=== PATIENT | female | born 1985 | race Caucasian/White ===

== ENCOUNTER 2025-07-25 10:55 | Outpatient (AMB) | payer OTHER, SELFPAY ==
--- OUTSIDE RECORDS SUMMARY | 2025-07-23 14:00 | XMS_ITS | Encounter Summary ---
Author Organization [facility] Address [address] [place] [address] Care Team Providers Care Acquisition Manager Name Role Phone Aditi Delarosa MD Primary Care Provider [phone] Reason for Referral * Imaging (Routine) - Authorized Specialty Diagnoses / Procedures Referred By Eli yañez Referred To Contact Radiology Diagnoses Encounter for screening for cardiovascular disorders Procedures MG Mammo Digital Screening bilat Bárbara Nelson, GERDA [address] [place] [address] Phone: tel: fax: [address] Phone: tel: Referral ID Status Reason Start Date Expiration Date V isits Requested Visits Authorized [id number] Authorized 07/23/2025 07/23/2026 1 1 Reason for Visit * Reason Comments Follow-up 2 week follow up for numbness and tingling in right arm. Right arm is not any better. When patient tries to use arm pain shoots from wrist up to right arm and is now going I to shoulder blade. Encounter Details Date Type Department Care Team (Late st Contact Info) Description 07/23/2025 2:00 PM EST Office Visit Adult Medicine [address] [phone] Bárbara Nelson, GERDA [address] [place] [address] Cervical radiculopathy (Primary Dx); Numbness and tingling of right arm; Type 2 diabetes mellitus without complication, without long-term current use of insulin ([facility] V24, [facility] V28); Encounter for screening for cardiovascular disorders Social History Tobacco Use Types Packs/Day Years Used Date Smoking Tobacco: Never Smokeless Tobacco: Never Tobacco Cessation:Counseling Given: Not Answered Alcohol Use Standard Drinks/Week Comments No 0 (1 standard drink = 0.6 oz pur e alcohol) Housing Instability Answer Date Recorde d Are you worried that in the next 2 months you may not have stable housing? No 06/16/2025 Food Access & Nutrition Answer Date Rec orded Do you have access to a vari ety of food including fruits and vegetables? Yes 06/16/2025 Access to Healthcare Answer Date Record ed Within the last 3 months, ho w many times did you visit the emergency department for your medical care? 0 06/16/2025 Health Literacy Answer Date Recorded How often do you need to hav e someone help you when you read instructions, pamphlets, or other written material from your doctor or pharmacy? Never 06/16/2025 Caregiver: How often do you need to have someone help you when you read instructions, pamphlets, or other written material from your doctor or pharmacy? Not on file 06/16/2025 Financial Risk Answer Date Recorded How hard is it for you to pa y for the very basics like food, housing, medical care, and air conditioning / heating? Not very hard 06/16/2025 Transportation Answer Date Recorded Has the lack of transportati on kept you from meetings, work, or from getting things needed for daily living? No Has the lack of transportati on kept you from medical appointments or from getting medications? No 06/16/2025 Social Isolation Answer Date Recorded How often do you feel lonely or isolated from th ose around you? Never 06/16/2025 Food Risk Answer Date Recorded Within the past 12 months we worried whether our food would run out before we got money to buy more. Never true 06/16/2025 Within the past 12 months th e food we bought just didn't last and we didn't have money to get more. Never true 06/16/2025 Dependent Care Answer Date Recorded Do you need help finding or paying for care for your loved ones. For example, child protective services social worker or elderly care for an older adult? No 06/16/2025 Education Answer Date Recorded Do you think completing more education or training, like finishing a GED, going to college, or learning a trade, would be helpful for you? No 06/16/2025 Employment and Income Answer Date Recor ded During the last four weeks, have you been actively looking for work? No 06/16/2025 Living Situation Answer Date Recorded What is your living situation? Unrecognized valu e 06/16/2025 Comments Unknown Sex and Gender Information Value Date Recorded Sex Assigned at Not on file Legal Sex Female 4:17 AM EST Gender Identity Not on file Sexual Orientation Not on file documented as of this encounter Last Filed Vital Signs Vital Sign Reading Time Taken Comments Blood Pressure 102/70 07/23/2025 2:09 PM EST Pulse 66 07/23/2025 2:09 PM EST Temperature 36.2 C (97.2 F) 07/23/2025 2:09 PM EST Respiratory Rate - - Oxygen Saturation 97% 07/23/2025 2:09 PM EST Inhaled Oxygen Concentration - - Weight 104 kg (230 lb) 07/23/2025 2:09 PM EST Height 157.5 cm (5' 2 ) 07/23/2025 2:09 PM EST Body Mass Index 42.07 07/23/2025 2:09 PM EST documented in this encounter Progress Notes * Bladimir Marks MA - 07/23/2025 2:00 PM EST BS 161 taken in office * Bárbara Nelson NP - 07/23/2025 2:00 PM EST PATIENT'S PCP: Aditi Delarosa MD LAST VISIT IN THIS DEPARTMENT: 07/10/2025 Ember Huggins is a 39 y.o. (: 1985) female who presents today for: Chief Complaint Patient presents with Follow-up 2 week follow up for numbness and tingling in right arm. Right arm is not any better. When patient tries to use arm pain shoots from wrist up to right arm and is now going I to shoulder blade. SUBJECTIVE History of Present Illness The patient is a 39-year-old female who presents for a follow-up of right arm pain. She reports persistent neck pain that radiates down her right arm, accompanied by numbness and tingling. These symptoms began on 06/09/2025. She has been referred to neurosurgery with an appointment scheduled for 08/01/2025. She also has a referral to physiatry for physical therapy on 07/25/2025. An x-ray was performed, but an MRI was not covered by her insurance. [facility] and is undergoing strengthening exercises. Although she has improved mobility in her right arm, she is unable to raise it fully. She continues to experience numbness in her fingers and reduced solid waste collection worker strength. Her neck pain has subsided, but she still experiences pain radiating down her arm, extending to her shoulder blade. She is currently on prednisone and a muscle relaxer, which she takes as needed. She has been prescribed quetiapine for nighttime use. Ibuprofen provides some relief from the pain but does not alleviate the numbness or tingling. She expresses a desire to return to work and has been attempting to use both arms as much as possible. She experiences numbness after approximately 1.5 to 2 hours of activity. She has developed a callus on her left hand due to increased use. She works 8 hours a day, Monday through Monday, and is open to returning to work part-time. Patient is a diabetic. Blood sugar in the office today was 161. Last A1c was 8.8% a year ago. She is currently on metformin 500 mg, 2 tabs in the morning 2 tabs in the evening. Will order routine labs for patient to complete prior to her next appointment in August. Review Of System Review of Systems Constitutional: Negative. Cardiovascular: Negative. Musculoskeletal: Positive for neck pain. Neck pain Arm Numbness Skin: Negative. Neurological: Positive for weakness and numbness. The following portions of the patient's chart were reviewed in this encounter and updated as appropriate: OBJECTIVE Vitals: 07/23/25 1409 BP: 102/70 Pulse: 66 Temp: 36.2 ??C (97.2 ??F) TempSrc: Temporal SpO2: 97% Weight: 104 kg (230 lb) Height: 1.575 m (62 ) BP Readings from Last 5 Encounters: 07/23/25 102/70 07/09/25 120/81 06/25/25 120/88 06/16/25 113/72 06/05/24 118/74 Body mass index is 42.07 kg/m??. Plan is deferred until next visit Wt Readings from Last 5 Encounters: 07/23/25 104 kg (230 lb) 07/09/25 102 kg (225 lb) 06/25/25 103 kg (227 lb) 06/16/25 103 kg (228 lb) 02/06/24 103 kg (228 lb) Allergies[1] Active Medication: Current Outpatient Medications Medication Instructions blood-glucose meter kit Prescribed by Rakesh Fernandez cyclobenzaprine (FLEXERIL) 5 mg, oral, 2 times daily PRN escitalopram (LEXAPRO) 20 mg, Daily glucose blood test strip Prescribed by Rakesh Fernandez ibuprofen (ADVIL,MOTRIN) 600 mg, oral, 3 times daily PRN lancets lancets Prescribed by Rakesh Fernandez levonorgestreL (MIRENA) 21 mcg/24hr (up to 8 yrs) 52 mg IUD Prescribed by THAI metFORMIN XR (GLUCOPHAGE-XR) 500 mg 24 hr tablet 2 tablets, 2 times daily QUEtiapine (SEROQUEL) 25 mg, oral, Nightly, Prescribed by Dr. Bravo in Psychiatry Physical Exam Vitals reviewed. Constitutional: Appearance: Normal appearance. Cardiovascular: Rate and Rhythm: Normal rate and regular rhythm. Pulses: Normal pulses. Heart sounds: Normal heart sounds. Pulmonary: Effort: Pulmonary effort is normal. Breath sounds: Normal breath sounds. Abdominal: General: Bowel sounds are normal. Palpations: Abdomen is soft. Musculoskeletal: Right shoulder: Tenderness present. Decreased range of motion. Decreased strength. Right upper arm: Tenderness present. Right elbow: Decreased range of motion. Tenderness present. Right forearm: Tenderness present. Right hand: Tenderness present. Decreased range of motion. Decreased strength. Cervical back: Normal range of motion and neck supple. Lumbar back: Tenderness present. Decreased range of motion. Skin: General: Skin is warm and dry. Neurological: General: No focal deficit present. Mental Status: She is alert. Mental status is at baseline. Imaging No Pertinent Imaging Laboratory: CBC: No results found for: WBC , HGB , HCT , MCV , PLT No results found for: LDLCALC 1. Cervical radiculopathy 2. Numbness and tingling of right arm 3. Type 2 diabetes mellitus without complication, without long-term current use of insulin ([facility], [facility] V28) 4. Encounter for screening for cardiovascular disorders Assessment & Plan 1. Cervical radiculopathy with numbness and tingling of the right arm: - Patient reports neck pain radiating down the right arm, accompanied by numbness and tingling, starting on 06/09/2025 - Pain no longer reaches the neck but still affects the shoulder area - Pain improved with prednisone, indicating an inflammatory process - Continues to use muscle relaxer and ibuprofen, which helps with pain but not with numbness and tingling - Referred to neurosurgery with an appointment scheduled for 08/01/2025 - Scheduled for physical therapy on 07/25/2025 - Out of work until 08/06/2025, after which reassessment will be made regarding return to work part-time - Letter give 2. FMLA Form - Form: FMLA form was completed. However patient need to drop off a new form to extend FMLA. - Start of illness: 06/09/25 - Office Visit: 06/16/25, 06/25/25, 07/09/25, 07/23/25 - Next office visit: 07/23/25 - Continue or Intermitted Leave: Continuous ~ 06/17/25 to 06/08/25, Extend to 07/23/25, Second Extension to 08/06/25. - Imagining: Xray cervical, MRI Cervical Spine ordered but the denied - Specialist Referral: Physical Therapy, pain management 07/25/25 and Neurosurgery appt 08/01/25 - Treatment: ibuprofen, prednisone, muscle relaxer, cortisone injection and Physical Therapy - Out of work reason: Persistent neck pain with numbness in the right arm. 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 She have numbness and pain when she type. 3. Diabetes -Blood sugar in the office today was 161. Last A1c was 8.8% a year ago. - Metformin 500 mg, 2 tabs in the a.m. and 2 tabs in the evening with meals. - Patient is to maintain a low carb diet. Patient understands the plan and is in agreement with the plan. FOLLOW-UP: Follow up in about 2 weeks (around 08/06/2025) for Follow up with Bárbara Nelson NP-. Bárbara Nelson NP ADULT [address] I have obtained verbal consent from Ember Tavia Huggins prior to the recording. I have advised Ember Tavia Huggins that she may refuse the recording and require the recording to be turned off at any time during this encounter. Today's documentation was made using voice recognition software.This note may contain grammatical errors secondary to this software. [1] Allergies Allergen Reactions House Dust Nickel Other Itching Rubber Fragrances. No reaction documented. documented in this encounter Plan of Treatment Upcoming Encounters Date Type Department Care Team (Late st Contact Info) Description 07/30/2025 9:30 AM EST Appointment Radiology Department - [address] [phone] 08/01/2025 11:30 AM EST Consult Neurosurgery [facility] [address] [phone] Mino Kwon PA [address] [address] 08/06/2025 2:00 PM EST Office Visit [address] [phone] Bárbara Nelson NP [address] [place] [address] Scheduled Orders Name Type Priority Associated Diagnoses Orde r Schedule Hemoglobin A1c Lab Routine Type 2 diabetes mellitus without complication, without long-term current use of insulin (CMS/HCC V24, CMS/HCC V28) Expected: 07/23/2025, Expires: 01/20/2026 Comprehensive metabolic panel Lab Routine Type 2 diabetes mellitus without complication, without long-term current use of insulin (CMS/HCC V24, [facility] V28) Encounter for screening for cardiovascular disorders Expected: 07/23/2025, Expires: 01/20/2026 Lipid panel with reflex to direct LDL Lab Routine Type 2 diabetes mellitus without complication, without long-term current use of insulin ([facility] V24, [facility] V28) Encounter for screening for cardiovascular disorders 1 Occurrences starting 07/23/2025 until 07/23/2026 Thyroid stimulating hormone with reflex to free t4 and free t3 Lab Routine Type 2 diabetes mellitus without complication, without long-term current use of insulin ([facility] V24, [facility] V28) Encounter for screening for cardiovascular disorders 1 Occurrences starting 07/23/2025 until 01/20/2026 Microalbumin creatinine urine ratio Lab Routine Type 2 diabetes mellitus without complication, without long-term current use of insulin ([facility] V24, [facility] V28) 1 Occurrences starting 07/23/2025 until 07/23/2026 [facility] Mammo Digital Screening bilat Imaging Routine Encounter for screening for cardiovascular disorders Expected: 07/23/2025, Expires: 07/23/2026 documented as of this encounter Procedures Procedure Name Priority Date/Time Associated Diagnosis Comments POC GLUCOSE Routine 07/23/2025 2:20 PM EST Type 2 diabetes mellitus without complication, without long-term current use of insulin ([facility] V24, [facility] V28) documented in this encounter Results * (ABNORMAL) POC glucose manually resulted (07/23/2025 2:20 PM EST) Glucose POC 161(A) 75 - 100 mg/dL Blood Capillary blood specimen / Unknown 07/23/2025 2:20 PM EST us Bárbara Nelson LOCATOR SPECIALIST POINT OF CARE TEST ENTER/CRUZ T ORDERABLES Final Result documented in this encounter Visit Diagnoses Diagnosis Cervical radiculopathy- Primary Brachial neuritis or radiculitis nos Numbness and tingling of right arm Type 2 diabetes mellitus without complication, without long-term current use of insulin ([facility] V24, [facility] V28) Encounter for screening for cardiovascular disorders documented in this encounter Discontinued Medications Medication Sig Discontinue Reason Start Date End Da te hydrOXYzine HCL (ATARAX) 10 mg tabletIndications:Cervical radiculopathy Take by mouth. Therapy completed 07/23/2025 predniSONE (DELTASONE) 20 mg tablet Take 60 mg PO daily for 3 days, then take 40 mg PO daily for 3 days, then 20 mg PO daily for 3 days, then stop Therapy completed 06/25/2025 07/23/2025 documented as of this encounter Additional Health Concerns Assessment Noted Time PHQ-9 Depression Total Score: 11 025 11:18 AM EDT documented as of this encounter Care Teams Acquisition Manager Relationship Specialty Start Date End Date Aditi Delarosa MD [address] [place] [id number] PCP - General Internal Medicine 11/08/21 documented as of this encounter
--- NOTE | 2025-07-25 10:58 | A.PHYSOV_ITS ---
Vital Signs 07/25/25 11:07 Height 5 ft 2 in Weight 225 lb BMI 41.1 Intake Visit Reasons: 1M followup Intake Note: Patient is a 39 year old patient here for a 1 month follow up today. Transportation Manager Required: No Allergies nickel Allergy (Unknown, Verified 07/25/25 10:59) Unknown rubber, unspecified Allergy (Unknown, Verified 07/25/25 10:59) Unknown HPI Comments Details: History of Present Illness The patient is a 39 year old individual presenting with right-sided arm pain and numbness. The pain originates in the elbow and radiates to the shoulder and back, with numbness and tingling in the fingers. Patient reports marked improvement of her lateral elbow pain since the July 02 epicondylitis injection. She is reporting most of her pain medially at a 6/10 in a similar distribution from the elbow to the hand. She also reports paresthesias in the median nerve distribution worse with activity. She denies any symptoms at night. Patient has been completing physical therapy without relief of her symptoms. Pain Description - Onset: Symptoms began in June. - Quality: Intermittent pain with numbness and tingling. - Location: Right elbow, radiating to shoulder and back. - Exacerbating factors: Daily activities such as eating and washing. - Relieving factors: Previous elbow injection provided temporary relief. Procedure: Right lateral epicondylitis injection 07/02/2025 Right medial epicondylitis injection 07/25/2025 [facility] Surgical History History of cholecystectomy (Unknown) Previous section (Unknown) Social History Alcohol intake: current Alcohol intake frequency: holidays/special occasions only Patient Tobacco Use Status: Never used Tobacco Use of substances other than those prescribed or required for medical reasons: Yes Substance Use Type: Marijuana Review of Systems Narrative Review of Systems - Neurological: Reports intermittent tingling in right fingers, denies numbness with neck movement. - Musculoskeletal: Reports right-sided arm pain, denies exacerbation with neck movement. Physical Exam Exam Exam: Physical Exam Cervical Spine: Examination of the cervical spine, there is no visible swelling or deformity. She is mildly tender to the right upper trapezius. Full range of motion of her cervical spine. Special Tests: Axial Compression test: Negative Spurlings test: Negative Lhermitte's sign is Negative Upper Extremities: Examination of her right elbow, she is less tender to the right lateral epicondyle. She is markedly tender to the medial epicondyle. She has a negative cubital tunnel test. She does have pain with Tinel testing. Full range of motion of her elbow wrist and hand. Equal plasma cutting machine operator strength too aterally. Neuro: Sensation: Intact to upper extremities bilateral to light touch Strength C5 (Elbow Flexion): 5/5 on the left and 5/5 on the right. C6 (Elbow Ext): 5/5 on the left and 5/5 on the right. C7 (Elbow Ext): 5/5 on the left and 5/5 on the right. C8 (Finger Flex): 5/5 on the left and 5/5 on the right. T1 (Finger Abd/Add): 5/5 on the left and 5/5 on the right. DTR: C5 (Biceps): Left 2 Right 2 C6 (Brachioradialis): Left 2 Right 2 C7 (Triceps): Left 2 Right 2 Rubio sign: Negative No pathologic clonus. No involuntary movement. Vital Signs: BMI result Body Mass Index 41.1 Office Procedures AMB Ankle Injection Ankle Joint injection Procedure Details: The patient was educated about the risks, complications and benefits of medial epicondylitis injection. She is eager to proceed. She was cleansed over the right medial epicondyle with iodine. She was then anesthetized with ethyl chloride. I then injected 20 mg of Kenalog and 0.5 mL of 2% lidocaine. Patient tolerated the procedure well without immediate complication. She was cleansed with an alcohol prep and a Band-Aid was applied. Ankle Joint Injection : Right Procedure code (CPT) selection complete Office Meds Kenalog 40 mg/mL suspension for injection Performing Provider: TRISTEN Tan [facility] Administered by: TRISTEN Tan on 07/25/25 11:33 Dose Route Admin Location Dispensed Lot Number Expiration Date [facility] Marketing Copywriter 20 mg Tendon Sheath Inj. 1 mL [address]-5 [employer] Total Dispensed Waste 1 mL 50 % lidocaine (PF) 20 mg/mL (2 %) injection solution Performing Provider: TRISTEN Tan [facility] Administered by: TRISTEN Tan on 07/25/25 11:33 Dose Route Admin Location Dispensed Lot Number Expiration Date [employer] 10 mg Tendon Sheath Inj. 50 mL [id number] Total Dispensed Waste 50 mL 0 % Assessment & Plan Assessment & Plan (1) Cervicalgia: Code(s): M54.2 - Cervicalgia Category: Medical (2) Lateral epicondylitis of right elbow: Code(s): M77.11 - Lateral epicondylitis, right elbow Category: Medical (3) Medial epicondylitis of right elbow: Code(s): M77.01 - Medial epicondylitis, right elbow Category: Medical Plan Pain Management - Affect: Pain impacts daily activities but not sleep. - Analgesia: Previous injection provided temporary relief; current pain level not specified. - Adverse Effects: None reported from previous treatment. - Activities of Daily Living: Pain interferes with eating and washing. - Aberrant Drug Related Behaviors: None reported. Plan Patient was informed and verbally consented to the use of an ambient scribe for clinic note documentation during this visit. 1. Medial Epicondylitis The plan includes administering an injection near the tendon to decrease inflammation, with expected relief within 24 to 48 hours. The patient was informed of the risks, including infection, nerve damage, and bleeding, and consent was obtained. 2. Carpal Tunnel Syndrome If symptoms persist, an EMG may be considered to evaluate for carpal tunnel syndrome. She will continue her home exercise plan and medications as prescribed. Orders: Orders AMB Elbow Injection Today M77.01 - Medial epicondylitis, right elbow Coding Level of Care Code Tele Est Pt Level 3 (45435) Diagnoses Cervicalgia M54.2 Lateral epicondylitis of right elbow M77.11 Medial epicondylitis of right elbow M77.01 CPT Codes Ankle Joint injection - Ankle Joint Injection : Right ([id number])
[2025-07-25 11:07] VITALS: BMI 41.1
--- OUTSIDE RECORDS SUMMARY | 2025-07-25 11:49 | XMS_ITS | Encounter Summary ---
Author Organization [facility] Address [address] [place] [address] Care Team Providers Care Pneumatic Jack Operator Name Role Phone Aditi Delarosa MD Primary Care Provider [phone] Encounter Details Date Type Department Care Team (Late st Contact Info) Description 06/16/2025 Results Follow-Up Adult Medicine [facility] [address] [place], [place] [phone] Bárbara Nelson NP [address] [place], [place] Social History Tobacco Use Types Packs/Day Years Used Date Smoking Tobacco: Never Smokeless Tobacco: Never Alcohol Use Standard Drinks/Week Comments No 0 [...] Record ed Within the last 3 months, remington jeronimo many times did you visit the emergency [...] care for your loved ones. For example, director child development center or elderly care for an older adult? [...] on file documented as of this encounter Progress Notes * Bárbara Nelson NP - 06/24/2025 5:56 PM EDT Call patient to schedule follow-up appointment for reevaluation of cervical spine pain and to reevaluate need to be out of work. Please book in 130 office visit. documented in this encounter Plan of Treatment Upcoming Encounters Date Type Department Care Team ([facility] st Contact Info) Description 07/30/2025 9:30 AM EST Appointment Radiology Department [address] [phone] 08/01/2025 11:30 AM EST Consult Neurosurgery [facility] [address] [phone] Mino Kwon PA 175 [facility] Dmitriy [address] [place] [phone] 08/06/2025 2:00 PM EST Office Visit Adult Medicine [facility] [address] [place], [place] [phone] Bárbara Nelson NP [address] [place], [place] documented as of this encounter Visit Diagnoses Not on filedocumented in this encounter Additional Health Concerns Assessment Noted Time PHQ-9 Depression Total Score: 0 06/16/20 25 9:19 AM EDT documented as of this encounter Care Teams Pneumatic Jack Operator Relationship Specialty Start Date End Date Aditi Delarosa MD [address] [place], [place] PCP - General Internal Medicine 11/08/21 documented as of this encounter
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
--- OUTSIDE RECORDS SUMMARY | 2025-07-25 11:49 | XMS_ITS | Encounter Summary ---
Author Organization [facility] Address [address] [place] [address] Care Team Providers Care Sewer Pipe Offbearer Name Role Phone Aditi Delarosa MD Primary Care Provider [phone] Encounter Details Date Type Department Care Team (Latest Contact Info) Description 11/22/2024 Lab Requisition [facility] [address] [facility] [place] [phone] Alisha Copeland MD 299 [facility] [address] [place] [phone] Encounter for gynecological examination (general) (routine) without abnormal findings Social History Tobacco Use Types Packs/Day Years Used Date Smoking Tobacco: Never Smokeless Tobacco: Never Alcohol Use Standard Drinks/Week Comments No 0 (1 standard drink = 0.6 oz pur e alcohol) Comments Unknown Sex and Gender Information Value Date Recorded Sex Assigned at Not on file Legal Sex Female 4:17 AM EST Gender Identity Not on file Sexual Orientation Not on file documented as of this encounter Plan of Treatment Upcoming Encounters Date Type Department Care Team (Late st Contact Info) Description 07/30/2025 9:30 AM EST Appointment Radiology Department [address] [phone] 08/01/2025 11:30 AM EST Consult Neurosurgery [facility] 175 [facility] [address] [place] [phone] Mino Kwon PA [address] [address] 08/06/2025 2:00 PM EST Office Visit Adult Medicine [place] [address] [place], [place] [phone] Bárbara Nelson NP [address] [place], [place] documented as of this encounter Procedures Procedure Name Priority Date/Time Associated Diagnosis Comments PAP SMEAR Routine 11/21/2024 12:00 AM EDT Encounter for gynecological examination (general) (routine) without abnormal findings documented in this encounter Results * Pap smear (11/21/2024 12:00 AM EDT) Interpretation Negative for intraepithelial lesion or malignancy 11/26/2024 12:09 PM [facility] General Categorization Negative 11/26/2024 12:09 PM EDT [facility] Other Findings Shift in kamlesh suggestive of bacterial vaginosis 11/26/2024 12:09 PM [facility] LMP 11/07/2024 11/26/2024 12:09 PM [facility] Specimen Adequacy Satisfactory for evaluation, endocervical/lamar sformation zone component present 11/26/2024 12:09 PM [facility] Pap Methodology Liquid Based Pap Test 11/26/2024 12:09 PM [facility] Disclaimer The Pap test is a screening test which carries an inherent false negative rate. These test results should be correlated with the patient's clinical findings and history. This Pap test was processed using an automated screening system. Technical cytopathology services provided by [facility], at [address] [place] [address], [place] [address] (CLIA # [id number]/Elis Bush MD, Device Test Engineer.) 11/26/2024 12:09 PM [facility] Console Pap Interpretation Reported 11/26/2024 12:09 PM EDT [facility] Brushing/Spatula Cervix uteri structure / Unknown 11/21/2024 11/22/2024 6:21 AM EDT us Alisha Copeland MD LAB CYTOLOGY ORDERABLES Final Result [facility] [address] [place] [address], documented in this encounter Visit Diagnoses Diagnosis Encounter for gynecological examination (general) (routine) without abnormal findings documented in this encounter Care Teams Sewer Pipe Offbearer Relationship Specialty Start Date End Date Aditi Delarosa MD [address] [place] [address] PCP - General Internal Medicine 11/08/21 documented as of this encounter
--- OUTSIDE RECORDS SUMMARY | 2025-07-25 11:50 | XMS_ITS | Data Portability ---
Author Organization [facility], [address] Address [address] [place] [address] Assessment No assessment recorded. Plan of Treatment Reminders Order Date Submit Date Provider Last Modified By Organization Details Last Modified Time Details Appointments None recorded. Lab SARS CoV 2 (COVID-19) Ag, QL, IA, upper respiratory specimen 2023 024 [email or web address] [address], [address] [place], [address], 4 14:18:31 Referral None recorded. Procedures None recorded. Surgeries None recorded. Imaging None recorded. Medication Orders Allergy Relief (fluticason e) 50 mcg/actuati on nasal spray,suspe nsion 2023 024 [facility]armacy #[id number], [address] [place], [address], 4 14:18:31 fexofenadin e 60 mg-pseudoep hedrine ER 120 mg tablet,ext. release,12 hr 2023 024 [facility]armacy #[id number], [address] [place], [address], 4 14:18:33 Patient TargetsNo targets recorded. Patient Instructions Encounter Date Encounter Id Patient Instructions Last Modified By Organization Details Last Modified Time 05/28/2024 [id number] things to do i f you've been exposed to covid-19 [email or web address] Not available 05/28/2024 14:18:29 Reason for Referral None Reported. Results Created Date Observation Date Name Description Value Unit Range Abnormal Flag Note LastModifiedBy Organization Detail LastModifiedTime 05/28/20 24 05/28/2024 SARS CoV 2 (COVI D-19) Ag, QL, [place], upper respi rator y speci men Unknown Analyte negati ve Not Available [address] [place], [address], 05/28/2024 13:51:54 05/28/20 24 05/28/2024 SARS CoV 2 (COVI D-19) Ag, QL, IA, upper respi rator y speci men Unknown Analyte yes Not Available [address] [place], [address], 05/28/2024 13:51:54 Result Notes None recorded. Problems Name Problem SNOMED Code Status Onset Date Resolution Date Notes Provider Name and Address Organization Details Recorded Time Anxiety 49281273 Active Danyelle vilchis, PA - [facility] 4 13:51:07 Diabetes mellitus 09767556 Active Danyelle Arreola null, PA - [facility] 4 13:51:13 Acute serous otitis media of bilateral ears 59987952881499 07 Active 2023 Orestes Bryan, PLANT MAINTENANCE MECHANIC [address] [facility] [place], [address] RUST PA - [facility] 4 14:17:02 Problem Notes None recorded. Medical Equipment None Reported. Allergies No known drug allergies Medications Name Sig Start Date Stop Date Status Note LastModified by Organization Details LastModified Time OneTouch Ultra Test strips USED TO CHECK SUGARS ONCE DAILY. active Not Available Not Available No t Available sertraline 25 mg tablet TAKE 1 TABLET BY MOUTH EVERY DAY active Not Available Not Available No t Available hydroxyzine HCl 10 mg tablet TAKE 1 TABLET BY MOUTH 3 TIMES DAILY NEEDED FOR ANXIETY FOR UP TO 10 DAYS. active Not Available Not Available No t Available fexofenadine 60 mg-pseudoeph edrine ER 120 mg tablet,ext.r elease,12 hr Take 1 tablet twice a day by oral route as needed for 10 days, for nasal decongestan t.. 2023 active Not Available Not Available Not Avai lable metformin ER 500 mg tablet,exten ded release 24 hr TAKE 1 TABLET BY MOUTH EVERY DAY WITH A MEAL active Not Available Not Available No t Available OneTouch UltraSoft Lancets USED TO CHECK SUGARS ONCE DAILY. active Not Available Not Available No t Available Allergy Relief (fluticasone ) 50 mcg/actuatio n nasal spray,suspen mahesh Parma 1 spray every day by intranasal route as directed for 90 days, for nasal congestion. 2023 active Not Available Not Available Not Avai lable OneTouch Ultra2 Meter USE DIRECTED TO CHECK BLOOD SUGAR ONCE A DAY active Not Available Not Available No t Available Vitals Date Recorded Body height Body weight Body mass index (BMI) Oxygen saturation Oxygen saturation in Arterial blood by Pulse oximetry Pain severity - 0-10 verbal numeric rating [Score] - Reported Heart rate Respiratory rate Body temperature Systolic And Diastolic Provider Name and Address Organization Details Last Updated DateTime 157.48 cm 108501. 25 g 42.1 kg/m2 98 % 98 % 5 71 /min 18 /min 98.7 [degF] 107/75 mm[Hg] Danyelle RAMON - [facility] 13:49:39 Social History Question Answer Notes LastModified by [email or web address] Details LastModified Time Tobacco Smoking Status Never Smoker TRISTEN Meredith [facility] 05/28/2024 13:51:26 Have You Had A Flu Shot This Season? No Information not available 05/28/2024 Have You Recently Traveled Abroad? No [email or web address] Information not available 05/28/2024 Sex: Unknown Functional Status Question Answer Note LastModified by [employer] Details LastModified Time Do you use any illicit or recreational drugs? No [email or web address] Information not available 05/28/2024 What is your level of alcohol consumption? Occasional [email or web address] Information not available 05/28/2024 Are you currently employed? Yes [email or web address] Information not available 05/28/2024 Mental Status None recorded. Family History Nothing Reported. Medical History No medical history recorded. Gynecological History Statement/Question Response Date of LMP 05/19/2024 Is there any chance of ? No LMP Definite Obstetrics History GPAL:G 0 P 0 0 0 0 Past Encounters Encounter ID Performer Location Encounter Start Date Encounter Closed Date Diagnosis/Indication Diagnosis SNOMED-CT Code Diagnosis ICD10 Code Diagnosis IMO Codes Diagnosis Note [id number] [facility] [place] [id number] 07/28/2020 08:08:56 07/28/2020 08:58:10 [id number] [facility] [id number] 06/19/2019 08:29:50 06/19/2019 09:16:34 [id number] [facility] [place] [id number] 03/19/2019 09:35:17 03/19/2019 10:35:47 [id number] [facility] [place] [id number] 04/26/2017 11:17:48 04/26/2017 12:39:05 [id number] [facility] PEACOCK [address] [facility] [place] [id number] 05/28/2024 12:33:50 05/28/2024 14:20:16 Exposure to SARS-CoV-2 863358073 Z20.822 Acute sero us otitis media of bilateral ears 6917262751 617568 H65.03 Sinusitis is an infection of the lining of the sinus cavities in your head. Sinusitis often follows a cold. It causes pain and pressure in your head and face. In most cases, sinusitis gets better on its own in 1 to 2 weeks. But some mild symptoms may last for several weeks. Sometimes antibiotic s are needed. if you are having problems. It's also a good idea to know your test results and keep a list of the medicines you take. How can you care for yourself at home? Take an over-the-c ounter pain medicine. Avoid Ibuprofen, Aleve and Aspirin if . If the doctor prescribed antibiotic s, take them as directed. Do not stop taking them just because you feel better. You need to take the full course of antibiotic s. Be careful when taking over-the-c ounter cold or influenza (flu) medicines and Tylenol at the same time. Many of these medicines have acetaminop hen, which is Tylenol. Read the labels to make sure that you are not taking more than the recommende d dose. Too much acetaminop hen (Tylenol) can be harmful. Breathe warm, moist air from a steamy shower, a hot bath, or a sink filled with hot water. Avoid cold, dry air. Using a humidifier in your home may help. Follow the directions for cleaning the machine. Use saline (saltwater ) nasal washes. This can help keep your nasal passages open and wash out mucus and bacteria. You can buy saline nose drops at a grocery store or drugstore. Or you can make your own at home by adding 1 teaspoon (5 millilitre s) of salt and 1 teaspoon (5 millilitre s) of baking soda to 2 cups (500 mL) of distilled water. If you make your own, fill a bulb syringe with the solution, insert the tip into your nostril, and squeeze gently. Blow your nose. Put a hot, wet towel or a warm gel pack on your face 3 or 4 times a day for 5 to 10 minutes each time. Try a decongesta nt nasal spray like oxymetazol ine (Drixoral) . Do not use it for more than 3 days in a row. Using it for more than 3 days can make your congestion worse. Health Concerns Section Related Observation LastModified by Organization Detai ls LastModified Time None Recorded Concern Status LastModified by Organization Details LastModified Time None Recorded Advance Directives Directive None Recorded Payers Insurance Date Sequence Insurance Name Policy Number Policy Raygoza Covered Member ID Raygoza Member ID Guarantor Name 05/28/2024 1 [id number] [facility] [id number] Ember D Joseluis [id number] Ember D Joseluis 05/28/2024 1 [facility] [id number] Ember D Joseluis [id number] Ember D Joseluis Notes Date Note Type Note Provider Name and Address Organization Details Recorded Time 09/24/202 4 text/htm l CongestionNewReported by PatientHPIFor modifying factors, patient reportstylenol. For location, patient reportsbilateral. For associated symptoms, patient reportscough,runny nose, andmoderate. For quality, patient reportspressureandaching. For timing, patient reportsconstant,worsening, andwaxes and wanes. For context, patient reportshx of allergies. Orestes Bryan NP [address] [place], [address], [place] - [facility] 05/28/2024 14:20:10 OBGyn Episode No OBEpisode recorded.
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
== END 2025-07-25 11:27 | disposition home or self-care (01) ==
LOC: HO.HPHYS 10:56
PROVIDERS: PCP Internal Medicine; Visit Provider Physician Assistant
DX: M54.2 Cervicalgia (principal); M77.01 Medial epicondylitis, right elbow; M77.11 Lateral epicondylitis, right elbow
CPT/HCPCS: 20605; 99213

== ENCOUNTER → 2025-07-25 10:55 | Outpatient (BNVA) | payer OTHER, SELFPAY | PROVIDERS: PCP Internal Medicine; Visit Provider Physician Assistant | DX: M77.11 Lateral epicondylitis, right elbow (principal); M77.01 Medial epicondylitis, right elbow; M54.2 Cervicalgia | CPT/HCPCS: 20605; 99212; J2003; J3301 ==

== ENCOUNTER 2025-09-02 08:05 | Outpatient (REF) | payer OTHER, SELFPAY ==
--- NOTE | 2025-09-02 08:08 | EMG_ITS ---
Chief complaint: pain and numbness in hands Referred by: TRISTEN Jones Procedure done: NCS and EMG of bilateral upper extremities Bilateral median and ulnar motor studies were performed. Bilateral radial sensory and median and ulnar mixed sensory studies were performed and needle examination was performed. Findings: No significant abnormality noted Impression: This is an unremarkable study with no evidence of median or ulnar neuropathy or a radiculopathy Codin 67165 x2 MTDD
--- OUTSIDE RECORDS SUMMARY | 2025-09-02 09:30 | XMS_ITS | Encounter Summary ---
Author Organization [facility] Address [address] [place] [address] Care Team Providers Care Auto Finance Sales Rep Name Role Phone Aditi Delarosa MD Primary Care Provider [phone] Reason for Visit * Reason Onset Date Comments Lab Results 08/04/2025 Elevated TSH Encounter Details Date Type Department Care Team (Late st Contact Info) Description 08/04/2025 Results Follow-Up Adult Medicine [facility] [place] [address] [place], [place] [phone] Bárbara Nelson NP [address] [place], [place] Social History Tobacco Use Types Packs/Day Years Used Date Smoking Tobacco: Never Passive Smoke Exposure: Never Smokeless Tobacco: Never Alcohol Use Standard [...] for your loved ones. For example, child welfare counselor or elderly care for an older adult? [...] Progress Notes * Bárbara Nelson NP - 08/04/2025 12:42 PM EST I reviewed your recent results. Your TSH level is slightly elevated. No acute concerns. No medication initiations at this time. However, I would like patient repeat TSH levels in 8 weeks. Please call patient and inform of message. documented in this encounter Plan of Treatment Upcoming Encounters Date Type Department Care Team (Late st Contact Info) Description 09/02/2025 2:00 PM EST Treatment [address] [address] Blade Cortés, BOTTLE HOUSE CLEANERS SUPERVISOR 09/09/2025 1:30 PM EST Treatment [address] [phone] Blade Cortés, BOTTLE HOUSE CLEANERS SUPERVISOR 09/10/2025 9:00 AM EST Office Visit Adult Medicine [facility] [address] [place], [place] [phone] Bárbara Nelson NP [address] [place], [place] 09/15/2025 1:45 PM EST Treatment [address] [address] Blade Cortés, BOTTLE HOUSE CLEANERS SUPERVISOR 09/18/2025 8:30 AM EST Treatment [address] [address] Blade Cortés, BOTTLE HOUSE CLEANERS SUPERVISOR 09/23/2025 8:30 AM EST Treatment [address] [address] Blade Cortés, BOTTLE HOUSE CLEANERS SUPERVISOR 09/25/2025 8:30 AM EST Treatment [address] [address] Blade Cortés, BOTTLE HOUSE CLEANERS SUPERVISOR 09/30/2025 8:30 AM EST Treatment [address] [address] Blade Cortés, BOTTLE HOUSE CLEANERS SUPERVISOR 10/02/2025 8:30 AM EST Treatment [address] [address] Mechelle Cee, PT Scheduled Orders Name Type Priority Associated Diagnoses Orde r Schedule Thyroid stimulating hormone with reflex to free t4 and free t3 Lab Routine Elevated TSH Expected: 10/05/2025, Expires: 08/04/2026 documented as of this encounter Visit Diagnoses Diagnosis Elevated TSH- Primary Other abnormal blood chemistry documented in this encounter Additional Health Concerns Assessment Noted Time PHQ-9 Depression Total Score: 11 025 11:18 AM EDT documented as of this encounter Care Teams Auto Finance Sales Rep Relationship Specialty Start Date End Date Aditi Delarosa MD [address] [place] [address] PCP - General Internal Medicine 11/08/21 documented as of this encounter
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
--- OUTSIDE RECORDS SUMMARY | 2025-09-02 09:30 | XMS_ITS | Encounter Summary ---
Author Organization [facility] Address [address] [place] [address] Care Team Providers Care Butter Maker Name Role Phone Aditi Delarosa MD Primary Care Provider [phone] Encounter Details Date Type Department Care Team (Latest Contact Info) Description 11/22/2024 Lab Requisition [facility] - Main Lab [address] [facility] [place] [phone] Alisha Copeland MD [address] [phone] Encounter for gynecological examination (general) (routine) without [...] Info) Description 09/02/2025 2:00 PM EST Treatment [facility] [address] [phone] Blade Cortés PTA 09/09/2025 1:30 PM EST Treatment [facility] [address] [phone] Blade Cortés PTA 09/10/2025 9:00 AM EST Office Visit Adult [facility] [address] [place], [place] [phone] Bárbara Nelson NP [address] [place] 09/15/2025 1:45 PM EST Treatment [address] [phone] Blade Cortés, [employer]TE [employer]ER SUPERVISOR 09/18/2025 8:30 AM EST Treatment [address] [phone] Blade Cortés, [employer]OUTE RIDER SUPERVISOR 09/23/2025 8:30 AM EST Treatment [address] [phone] Blade Cortés, ROUTE RIDER SUPERVISOR 09/25/2025 8:30 AM EST Treatment [address] [phone] Blade Cortés, ROUTE RIDER SUPERVISOR 09/30/2025 8:30 AM EST Treatment [address] [phone] Blade Cortés, ROUTE RIDER SUPERVISOR 10/02/2025 8:30 AM EST Treatment [address] [phone] Mechelle Cee, PT documented as of this encounter Procedures Procedure Name Priority Date/Time Associated Diagnosis Comments PAP SMEAR Routine 11/21/2024 12:00 AM EDT Encounter for gynecological examination (general) (routine) without abnormal findings documented in this encounter Results * Pap smear (11/21/2024 12:00 AM EDT) Interpretation Negative for intraepithelial lesion or malignancy 11/26/2024 12:09 PM EDT [facility] ([facility]) [facility] at 1209 EDT General Categorization Negative 11/26/2024 12:[address] [facility] Other Findings Shift in kamlesh suggestive of bacterial vaginosis 11/26/2024 12:[address] [facility] LMP 11/07/2024 11/26/2024 12:[address] [facility] Specimen Adequacy Satisfactory for evaluation, endocervical/lamar sformation zone component present 11/26/2024 12:[address] [facility] Pap Methodology Liquid Based Pap Test 11/26/2024 12:[address] [facility] Disclaimer The Pap test is a screening test which carries an inherent false negative rate. These test results should be correlated with the patient's clinical findings and history. This Pap test was processed using an automated screening system. Technical cytopathology services provided by [facility], at [address] [place] [address] (CLIA # [id number]/Elis Bush MD, Cabin Worker.) 11/26/2024 12:[address] [facility] Console Pap Interpretation Reported 11/26/2024 12:[address] [facility] Brushing/Spatula Cervix uteri structure / Unknown 11/21/2024 11/22/2024 6:21 AM EDT us Alisha Copeland MD LAB CYTOLOGY ORDERABLES Final Result [facility]) [facility] [address] [place] [address], documented in this encounter Visit Diagnoses Diagnosis Encounter for gynecological examination (general) (routine) without abnormal findings documented in this encounter Care Teams Butter Maker Relationship Specialty Start Date End Date Aditi Delarosa MD [address] [place] [phone] PCP - General Internal Medicine 11/08/21 documented as of this encounter
--- OUTSIDE RECORDS SUMMARY | 2025-09-02 09:30 | XMS_ITS ---
Author Name [facility] Organization Unknown Care Team Organization Name Specialty Phone Email Start Date End Da te [facility] Delarosa Primary Care 01/09/2023 04/22/2024 [facility] Ben Wright Primary Care 11/09/20222023 [facility] NULL Primary Care 09/12/2022 04/22/2024 [facility] Termed, PROVIDER Primary Care 07/12/202204/04
== END 2025-09-02 08:06 | disposition home or self-care (01) ==
LOC: HO.NEURO 08:05
PROVIDERS: PCP Internal Medicine; Visit Provider Physician Assistant
DX: G56.21 Lesion of ulnar nerve, right upper limb (principal); M79.642 Pain in left hand; M79.641 Pain in right hand; R20.0 Anesthesia of skin
CPT/HCPCS: 95886; 95911

== ENCOUNTER → 2025-09-02 08:08 | Outpatient (BNV) | payer OTHER, SELFPAY | PROVIDERS: PCP Internal Medicine; Visit Provider Psychiatry & Neurology Neurology | DX: R20.0 Anesthesia of skin (principal) | CPT/HCPCS: 95886; 95911 ==